=== PATIENT | male | born 1975 | race Caucasian/White ===

== ENCOUNTER 2016-11-17 21:19 | Emergency (ER) | payer MEDICAID, MEDICARE, SELFPAY ==
[~2016-11-17] VITALS: Ht 172.7 cm; Wt 73.0 kg
[~2016-11-17 21:19] MED LIST: HALO10TA15 GT; RISP3 PO; TRIH5TAB2 GT
[2016-11-17] MEDS ORDERED: OLAN10TA3 PO (21:23)
[2016-11-17 22:25] VITALS: BP 121/79
[2016-11-17 22:31] LABS: BASOPHILS % (AUTO) 1.1 % (0.0-2.0); HEMOGLOBIN 15.5 g/dL (13.5-17.5); LYMPHOCYTES # (AUTO) 1.3 K/uL (1.0-4.8); MEAN CORPUSCULAR HEMOGLOBIN 30.4 pg (26.0-34.0); MEAN CORPUSCULAR VOLUME 92 fL (80-100); MONOCYTES # (AUTO) 0.8 K/uL (0.1-1.0); NEUTROPHILS # (AUTO) 6.2 K/uL (1.8-7.7); NEUTROPHILS % (AUTO) 72.9 % (40.0-70.0); PLATELET COUNT (AUTO) 155 K/uL (150-450); RED CELL DISTRIBUTION WIDTH 12.9 % (11.5-14.5); WHITE BLOOD COUNT (AUTO) 8.5 K/uL (4.5-11.0)
[2016-11-17 22:41] LABS: ANION GAP 7 mmol/L (8-16); CARBON DIOXIDE 29 mmol/L (22-29); CHLORIDE 104 mmol/L (98-107); CREATININE 1.05 mg/dL (0.60-1.30); GLOMERULAR FILTR. RATE CALC > 60 mL/min (>60); POTASSIUM 3.6 mmol/L (3.5-5.1); SODIUM SERUM 140 mmol/L (136-145); UREA NITROGEN, BLOOD 10 mg/dL (7-18)
[2016-11-17 22:48] LABS: ALANINE AMINOTRANSFERASE 31 U/L (12-78); ALBUMIN 3.9 g/dL (3.4-5.0); ASPARTATE AMINOTRANSFERASE 22 U/L (15-37); BILIRUBIN,TOTAL 0.1 mg/dL (0.1-1.0); TOTAL PROTEIN, SERUM 7.1 g/dL (6.4-8.2)
== END 2016-11-18 02:04 | disposition home or self-care (01) ==
LOC: EMS 21:21
DX: R45.851 Suicidal ideations (principal); F20.9 Schizophrenia, unspecified; J06.9 Acute upper respiratory infection, unspecified; F31.9 Bipolar disorder, unspecified; F14.90 Cocaine use, unspecified, uncomplicated; F12.90 Cannabis use, unspecified, uncomplicated; F16.10 Hallucinogen abuse, uncomplicated; F17.210 Nicotine dependence, cigarettes, uncomplicated; Z88.8 Allergy status to other drugs, medicaments and biological substances
CPT/HCPCS: 36415; 80053; 80307; 85025; 99285; G0480

== ENCOUNTER 2016-12-04 21:34 | Inpatient (IN) | payer MEDICARE ==
[~2016-12-04] VITALS: Ht 170.2 cm; Wt 65.8 kg
[~2016-12-04 21:34] MED LIST changes: -HALO10TA15 GT; +OLAN10TA3 PO; -RISP3 PO; -TRIH5TAB2 GT
[2016-12-04 22:00] LABS: BASOPHILS # (AUTO) 0.04 K/uL (0.00-0.20); BASOPHILS % (AUTO) 0.5 % (0.0-2.0); EOSINOPHILS # (AUTO) 0.25 K/uL (0.00-0.70); HEMATOCRIT 50.5 % (41-53); HEMOGLOBIN 16.7 g/dL (13.5-17.5); LYMPHOCYTES # (AUTO) 1.5 K/uL (1.0-4.8); MEAN CORPUSCULAR HGB CONC 33.1 G/dL (31.0-37.0); MEAN CORPUSCULAR VOLUME 91 fL (80-100); MONOCYTES # (AUTO) 0.6 K/uL (0.1-1.0); MONOCYTES % (AUTO) 7.5 % (2.0-9.0); NEUTROPHILS # (AUTO) 5.6 K/uL (1.8-7.7); NEUTROPHILS % (AUTO) 69.9 % (40.0-70.0); PLATELET COUNT (AUTO) 147 K/uL (150-450); RED BLOOD CELL COUNT(AUTO) 5.57 MIL/uL (4.50-5.90); RED CELL DISTRIBUTION WIDTH 13.6 % (11.5-14.5); WHITE BLOOD COUNT (AUTO) 7.9 K/uL (4.5-11.0)
[2016-12-04 22:13] LABS: ANION GAP 11 mmol/L (8-16); CALCIUM, TOTAL 8.7 mg/dL (8.8-10.5); CARBON DIOXIDE 28 mmol/L (22-29); CHLORIDE 102 mmol/L (98-107); CREATININE 0.99 mg/dL (0.60-1.30); GLOMERULAR FILTR. RATE CALC > 60 mL/min (>60); POTASSIUM 4.1 mmol/L (3.5-5.1); SODIUM SERUM 141 mmol/L (136-145); UREA NITROGEN, BLOOD 11 mg/dL (7-18)
[2016-12-04 22:20] LABS: ALANINE AMINOTRANSFERASE 24 U/L (12-78); ASPARTATE AMINOTRANSFERASE 19 U/L (15-37); BILIRUBIN,TOTAL 0.3 mg/dL (0.1-1.0); TOTAL PROTEIN, SERUM 7.5 g/dL (6.4-8.2)
[2016-12-04] MEDS ORDERED: ZOLPIDEM TARTRATE 10 MG TABLET PO PRN (23:00)
[2016-12-04] MEDS ORDERED: HALOPERIDOL 5 MG TABLET PO PRN (23:00)
[2016-12-04] MEDS ORDERED: LORazepam 2 MG TABLET PO ONE (23:15)
[2016-12-04] MEDS ORDERED: OLANZapine 5 MG TABLET PO ONE (23:15)
[2016-12-04] MEDS ORDERED: DiphenhydrAMINE HCL 25 MG CAPSULE PO ONE (23:15)
[2016-12-05 01:26] VITALS: BP 104/65
[2016-12-05] MEDS ORDERED: PNEUMOCOCCAL VACCINE POLYVALENT 0.5 ML VIAL [PPSV23] IM ONE (01:30)
[2016-12-05] MEDS ORDERED: INFLUENZA VIRUS VACCINE QVS 2016-17 (3YR+)/PF 60 MCG/0.5 ML SYRINGE IM ONE (01:30)
[2016-12-05 08:05] VITALS: BP 107/61
[2016-12-05] MEDS: OLANZapine 5 MG TABLET PO PRN (09:11)
[2016-12-05] MEDS: LORazepam 2 MG TABLET PO PRN ×2 (09:12→16:39)
[2016-12-05] MEDS: RisperiDONE 1 MG TABLET PO SCH ×2 (12:54→16:39)
[2016-12-05 16:00] VITALS: BP 109/65
[2016-12-05] MEDS: DIVALPROEX SODIUM 500 MG ER TABLET PO SCH (20:33)
[2016-12-06 06:18] VITALS: BP 115/72
[2016-12-06 08:03] VITALS: BP 128/88
[2016-12-06] MEDS: LORazepam 2 MG TABLET PO PRN (08:24)
[2016-12-06] MEDS: OLANZapine 5 MG TABLET PO PRN (08:24)
[2016-12-06] MEDS: RisperiDONE 1 MG TABLET PO SCH ×2 (08:24→16:55)
[2016-12-06] MEDS: NICOTINE 21 MG/24 HOUR PATCH TD SCH (08:25)
[2016-12-06 16:36] VITALS: BP 122/83
[2016-12-06] MEDS: DIVALPROEX SODIUM 500 MG ER TABLET PO SCH (20:29)
[2016-12-07 06:42] VITALS: BP 116/76
[2016-12-07] MEDS: RisperiDONE 1 MG TABLET PO SCH ×2 (08:06→16:58)
[2016-12-07] MEDS: LORazepam 2 MG TABLET PO PRN ×2 (08:06→16:58)
[2016-12-07] MEDS: OLANZapine 5 MG TABLET PO PRN (08:06)
[2016-12-07] MEDS: NICOTINE 21 MG/24 HOUR PATCH TD SCH (08:06)
[2016-12-07 08:42] VITALS: BP 138/87
[2016-12-07 16:00] VITALS: BP 124/83
[2016-12-07] MEDS: DIVALPROEX SODIUM 500 MG ER TABLET PO SCH (20:29)
[2016-12-08 04:40] VITALS: BP 122/78
[2016-12-08 08:09] VITALS: BP 112/61
[2016-12-08] MEDS ORDERED: FLUoxetine HCL 20 MG CAPSULE PO SCH (09:15)
[2016-12-08] MEDS: RisperiDONE 1 MG TABLET PO SCH ×2 (09:35→17:17)
[2016-12-08] MEDS: LORazepam 2 MG TABLET PO PRN ×2 (09:35→17:54)
[2016-12-08] MEDS: NICOTINE 21 MG/24 HOUR PATCH TD SCH (09:36)
[2016-12-08] MEDS: FLUoxetine HCL 20 MG CAPSULE PO SCH (09:38)
[2016-12-08 16:00] VITALS: BP 119/76
[2016-12-08] MEDS: DIVALPROEX SODIUM 500 MG ER TABLET PO SCH (20:19)
[2016-12-09 06:47] VITALS: BP 111/62
[2016-12-09 08:04] VITALS: BP 118/61
[2016-12-09] MEDS: FLUoxetine HCL 20 MG CAPSULE PO SCH (08:49)
[2016-12-09] MEDS: RisperiDONE 1 MG TABLET PO SCH (08:49)
[2016-12-09] MEDS: NICOTINE 21 MG/24 HOUR PATCH TD SCH (08:56)
[2016-12-09] MEDS ORDERED: RISP1TAB89 PO (09:33)
[2016-12-09] MEDS ORDERED: DIVA500T69 PO (09:34)
[2016-12-09] MEDS ORDERED: FLUO20CA30 PO (09:35)
== END 2016-12-09 11:01 | disposition home or self-care (01) | DRG 885 ==
LOC: EMS 21:39 → B3A 23:15
PROVIDERS: ADMIT Psychiatry & Neurology Child & Adolescent Psychiatry; ATTEND Psychiatry & Neurology Child & Adolescent Psychiatry
DX: F20.0 Paranoid schizophrenia (principal); F12.90 Cannabis use, unspecified, uncomplicated; F31.9 Bipolar disorder, unspecified; J45.909 Unspecified asthma, uncomplicated; F15.90 Other stimulant use, unspecified, uncomplicated; F10.20 Alcohol dependence, uncomplicated; Z78.1 Physical restraint status; Z87.891 Personal history of nicotine dependence; Z79.899 Other long term (current) drug therapy; Z88.8 Allergy status to other drugs, medicaments and biological substances; Z88.5 Allergy status to narcotic agent
CPT/HCPCS: 93005; 99285; G0480